=== PATIENT | male | born 1980 | race Caucasian/White ===

== ENCOUNTER 2018-02-15 09:25 | Outpatient (CLI) | payer BC, SELFPAY ==
[2018-02-16 11:51] LABS: BUN 19 mg/dL (7-18); CREATININE 1.08 mg/dL (0.70-1.30); Calcium 8.7 mg/dL (8.5-10.1); Cholesterol 228 mg/dL (50-200); Glucose 95 mg/dL (70-100); HDL Cholesterol 48 mg/dL (40-60); LDL CHOLESTEROL 160 mg/dL (<100); Triglyceride 88 mg/dL (30-150)
[2018-02-16 11:52] LABS: Anion Gap 9.3 mmol/L (3-11); CO2 29.7 mmol/L (21.0-32.0); Chloride 102 mmol/L (98-107); Potassium 4.4 mmol/L (3.5-5.1); Sodium 141 mmol/L (136-145)
[2018-02-16 11:54] LABS: HCT 44.7 % (40.0-50.0); HGB 14.6 g/dL (13.5-17.5); Mean Corpuscular Hemoglobin 28.6 pg (27.0-33.0); Mean Corpuscular Volume 87.5 fL (80-95); RBC 5.11 m/cumm (4.50-6.00); White Blood Cell Count 5.79 k/cumm (4.4-10.8)
[2018-02-16 11:55] LABS: Absolute Basophil Count 0.02 k/cumm (0.0-0.2); Absolute Eosinophil Count 0.07 k/cumm (0.0-0.7); Absolute Lymphocyte Count 1.88 k/cumm (1.2-3.4); Absolute Monocyte Count 0.48 k/cumm (0.11-0.7); Absolute Neutrophil Count 3.33 k/cumm (1.2-6.7); Basophils % 0.3; Eosinophils % 1.2; Lymphocytes % 32.5; Mean Corp. HGB Concentration 32.7 g/dL (32.0-36.0); Mean Platelet Volume 11.5 fL (8.0-11.0); Monocytes % 8.3; Neutrophils % 57.5; Platelet Count 161 x1000/uL (130-400); RBC Distribution Width 12.9 % (11.8-14.1)
[2018-02-16 11:56] LABS: RBC Morphology Normal
== END 2018-02-15 09:45 ==
LOC: NCHCO 09:25
PROVIDERS: PCP Nurse Practitioner Family; Visit Provider Nurse Practitioner Family
DX: Z00.00 Encounter for general adult medical examination without abnormal findings (principal); Z13.228 Encounter for screening for other metabolic disorders; Z13.0 Encounter for screening for diseases of the blood and blood-forming organs and certain disorders involving the immune mechanism
CPT/HCPCS: 80048; 80061; 83721; 85025